=== PATIENT | male | born 1970 | race Caucasian/White ===

== ENCOUNTER 2017-10-02 16:34 | Emergency (ER) | payer OTHER ==
[~2017-10-02] VITALS: Ht 180.3 cm; Wt 107.0 kg
[2017-10-02 17:10] VITALS: Ht 180.3 cm; Wt 107.0 kg
[2017-10-02 20:03] VITALS: BP 125/85
== END 2017-10-02 20:05 | disposition home or self-care (01) ==
LOC: ED 16:34
DX: M25.511 Pain in right shoulder (principal); R20.2 Paresthesia of skin; G58.9 Mononeuropathy, unspecified

== ENCOUNTER 2020-01-29 13:00 | Emergency (ER) | payer OTHER ==
[~2020-01-29] VITALS: Ht 180.3 cm; Wt 105.7 kg
[2020-01-29 13:06] VITALS: Ht 180.3 cm; Wt 105.7 kg
[2020-01-29 18:33] VITALS: BP 122/88
== END 2020-01-29 18:33 | disposition home or self-care (01) ==
LOC: ED 13:00
DX: M79.651 Pain in right thigh (principal); I10 Essential (primary) hypertension